=== PATIENT | male | born 1985 | race Caucasian/White ===

== ENCOUNTER 2017-05-31 21:27 | Emergency (ER) | payer OTHER ==
[~2017-05-31] VITALS: Ht 170.2 cm; Wt 77.1 kg
[2017-05-31 21:44] VITALS: BP 122/75
[2017-05-31] MEDS ORDERED: HYDR-2758 PO (22:07)
--- NOTE | 2017-05-31 22:07 | PHYS DOC ---
Past History Past Medical History: No Pertinent History Alcohol Use: None Drug Use: None Adult General Chief Complaint Chief Complaint: KNEE INJURY HPI HPI 32-year-old male presenting to the emergency department after injuring his right knee. He externally rotated it while he was roller skating. He has pain in his right knee that is worse with walking. This happened about an hour prior to arrival. He denies any other injuries. Pain is a sharp shooting pain nonradiating and intermittent. Past surgical history: Left knee Social history denies drinking or drug use. Medical conditions: He denies major medical conditions Review of systems is negative for chest pain shortness of breath fevers chills hip pain or ankle pain. All other review of systems is negative unless otherwise noted in history of present illness. ED course: 32-year-old male presenting with right knee pain after externally rotating his knee accidentally while on roller skates. The right knee shows no effusion. No ecchymosis lacerations or abrasions. It is tender to touch on the medial portion of the knee. Normal anterior and posterior drawer test. Normal Yenni's test. No signs of meniscal injury. Stable knee joint. Neurovascularly intact distally. Otherwise unremarkable exam. X-rays obtained which were read preliminarily by myself were unremarkable for acute obvious fracture or dislocation.The patient has been examined and was not found to have an emergency medical condition. The patient was then discharged home in stable condition to follow up with their primary care physician over the next 2-3 days. They were to return if their symptoms worsened or if they were concerned for any reason. [id number] discharge instructions and return precautions were given. Patient's questions were answered to their satisfaction. Patient is comfortable with plan. Review of Systems Review of Systems SEE ABOVE. Physical Exam Physical Exam SEE ABOVE Constitutional: Well developed, well nourished, no acute distress, non-toxic appearance. [] HENT: Normocephalic, atraumatic, bilateral external ears normal, oropharynx moist, no oral exudates, nose normal. [] Eyes: PERRLA, EOMI, conjunctiva normal, no discharge. [] Neck: Normal range of motion, no tenderness, supple, no stridor. [] Cardiovascular:Heart rate regular rhythm, no murmur [] Lungs & Thorax: Bilateral breath sounds clear to auscultation [] Skin: Warm, dry, no erythema, no rash. [] Back: No tenderness, no CVA tenderness. [] Extremities: SEE ABOVE Neurologic: Alert and oriented X 3, normal motor function, normal sensory function, no focal deficits noted. [] Psychologic: Affect normal, judgement normal, mood normal. [] Current Patient Data Vital Signs Vital Signs Date Time Temp Pulse Resp B/P (MAP) Pulse Ox O2 Delivery O2 Flow Rate FiO2 05/31/17 21:44 97.0 49 18 95 Room Air EKG EKG [] Radiology/Procedures Radiology/Procedures [] Course & Med Decision Making Course & Med Decision Making Pertinent Labs and Imaging studies reviewed. (See chart for details) [] Dragon Disclaimer Dragon Disclaimer This electronic medical record was generated, in whole or in part, using a voice recognition dictation system. Departure Departure: Impression: Primary Impression: Right knee injury Disposition: HOME, SELF-CARE Condition: STABLE Referrals: PCP,UNKNOWN (PCP) REBA SNELL MD Patient Instructions: Knee Pain Additional Instructions: Thank you for allowing us to participate in your care today. The x-rays we performed today showed no signs of fracture or dislocation. You may have injured some of the soft tissue of your knee. If you continue having pain, I recommend following up with your primary care doctor and an outpatient MRI of the knee. Followup with your primary care physician in 3 days if your symptoms do not improve. Call your Primary Doctor tomorrow and inform them of your visit today. If you do not have a primary care provider you can ask for a list of our primary care providers. Return to the emergency department you have any new or concerning findings. This should be evaluated by the primary care physician and any necessary consulting services for continued management within a few days after discharge. Return to emergency room if you have any new or concerning symptoms including but not limited to fever, chills, nausea, vomiting, intractable pain, any new rashes, chest pain, shortness of air, uncontrolled bleeding, difficulty breathing, and/or vision loss. If at any time, you are having difficulty getting into your primary care doctor or a specialist, return to the emergency department. You may have been prescribed medication that can change in your level of thinking and ability to operate machinery. These medications include hydrocodone and Ativan. Also, Benadryl has been known to do this as well. Be sure to check with your pharmacist and ask if the medications you've prescribed can affect your level of consciousness. I recommend not operating heavy machinery or driving while on medication such as these. Scripts Hydrocodone Bit/Acetaminophen (HYDROCODONE-APAP 5-325 ) 1 Each Tablet 1 TAB PO PRN Q6HRS Y for PAIN, #10 TAB 0 Refills Prov: DANIEL QUISPE MD 05/31/17 DANIEL QUISPE MD May 31, 2017 22:07
--- NOTE | 2017-06-01 08:01 | RAD ---
Right knee, 3 views, 05/31/2017: History: Knee injury, pain No fracture or dislocation is identified. No significant joint effusion is seen. IMPRESSION: No acute right knee abnormality is detected.
== END 2017-05-31 22:19 | disposition home or self-care (01) ==
LOC: ER 21:27
DX: S89.91XA Unspecified injury of right lower leg, initial encounter (principal); X50.9XXA Other and unspecified overexertion or strenuous movements or postures, initial encounter; Y93.51 Activity, roller skating (inline) and skateboarding; Y99.8 Other external cause status; Y92.89 Other specified places as the place of occurrence of the external cause
CPT/HCPCS: 73562; 99284